=== PATIENT | male | born 1960 | race Caucasian/White ===

== ENCOUNTER 2021-09-04 17:55 | Emergency (ER) | payer BC ==
[~2021-09-04] VITALS: Ht 175.3 cm; Wt 80.9 kg
[2021-09-04 18:17] VITALS: TEMP 98.1
[2021-09-04 20:43] VITALS: BP 129/84; PULSE 63
== END 2021-09-04 20:43 | disposition home or self-care (01) ==
LOC: COL.ER 17:55
DX: S43.004A Unspecified dislocation of right shoulder joint, initial encounter (principal); W11.XXXA Fall on and from ladder, initial encounter; Y93.89 Activity, other specified
CPT/HCPCS: J2704; J3010; J7030